=== PATIENT | female | born 1990 | race African-American/Black ===

== ENCOUNTER 2016-10-03 23:25 | Emergency (ER) | payer MEDICAID ==
[~2016-10-03] VITALS: Ht 162.6 cm; Wt 98.4 kg
[2016-10-03 23:44] VITALS: BP 112/63
--- NOTE | 2016-10-04 00:52 | NUR ---
PT TAKEN TO BED 3
--- NOTE | 2016-10-04 01:00 | NUR ---
PATIENT PRESENTS TO ED WITH C/O HEADACHE,N/V AND ABD PAIN. PT IS PT SKIN IS PINK/WARM/DRY; AAOX4 WITH EVEN AND STEADY GAIT; LUNGS CLEAR BL; HR EVEN AND REGULAR; PT DENIES ANY FEVER, CP, SOB, OR COUGH AT THIS TIME; PATIENT STATES PAIN OF 7/10 AT THIS TIME; VSS; PATIENT POSITIONED FOR COMFORT; HOB ELEVATED; BEDRAILS UP X2; BED DOWN. ER MD MADE AWARE OF PT STATUS.
--- NOTE | 2016-10-04 01:03 | NUR ---
[facility] in [facility] - 10/04/[address] at [address] Malagon evaluating patient at bedside.
[2016-10-04 01:13] LABS: APPEARANCE,URINE HAZY (CLEAR); BILIRUBIN,URINE NEGATIVE (NEGATIVE); BLOOD, URINE NEGATIVE (NEGATIVE); COLOR,URINE YELLOW (YELLOW); LEUKOCYTE ESTERASE ,URINE 2+ (NEGATIVE); NITRITE, URINE NEGATIVE (NEGATIVE); PROTEIN,URINE NEGATIVE (NEGATIVE); UGLUCOSE NEGATIVE (NEGATIVE)
--- NOTE | 2016-10-04 01:15 | NUR ---
[facility] car in [facility] - 10/04/16 at 0117 by FAUSTINA Ultrasound at bedside.
--- NOTE | 2016-10-04 01:16 | NUR ---
Dr. Malagon evaluating patient at bedside.
[2016-10-04] MEDS ORDERED: ACETAMINOPHEN EXTRA STRENGTH 500 MG TAB PO ONE (01:20)
[2016-10-04 01:22] LABS: BACTERIA,URINE 1+ /HPF (None Seen); RBC,URINE 0-5 (RARE) /HPF (0-5)
[2016-10-04 01:23] LABS: MUCUS,URINE 1+ /LPF (None Seen); SQUAMOUS EPITHELIAL CELL,UR 20-50 /LPF (0-3 (FEW))
--- NOTE | 2016-10-04 01:27 | NUR ---
Ultrasound at bedside.
[2016-10-04 02:20] VITALS: BP 111/60
--- NOTE | 2016-10-04 02:29 | NUR ---
Patient discharged with v/s stable. Written and verbal after care instructions given and explained. Patient alert, oriented and verbalized understanding of instructions. Ambulatory with steady gait. All questions addressed prior to discharge. ID band removed. Patient advised to follow up with PMD. Rx of TYLENOL 500MG given. Patient educated on indication of medication including possible reaction and side effects. Opportunity to ask questions provided and answered.
== END 2016-10-04 02:29 | disposition home or self-care (01) ==
LOC: MED 23:25
DX: O9A.212 Injury, poisoning and certain other consequences of external causes complicating pregnancy, second trimester (principal); S39.012A Strain of muscle, fascia and tendon of lower back, initial encounter; S00.83XA Contusion of other part of head, initial encounter; O23.42 Unspecified infection of urinary tract in pregnancy, second trimester; Z3A.19 19 weeks gestation of pregnancy; V43.62XA Car passenger injured in collision with other type car in traffic accident, initial encounter; Y93.I9 Activity, other involving external motion; Y92.488 Other paved roadways as the place of occurrence of the external cause; Y99.8 Other external cause status
CPT/HCPCS: 36415; 76805; 81001; 86900; 86901; 87086; 99285; Q0092